=== PATIENT | male | born 1995 | race Two or more races ===

== ENCOUNTER 2021-09-30 02:32 | Emergency (ER) | payer OTHER ==
[~2021-09-30] VITALS: Ht 172.7 cm; Wt 86.2 kg
[2021-09-30 03:04] VITALS: BP 131/86
== END 2021-09-30 03:30 | disposition left against medical advice (07) ==
LOC: ER 02:32 → EDBD 02:32 → ER 03:30
DX: M54.2 Cervicalgia (principal); M54.9 Dorsalgia, unspecified; Z53.21 Procedure and treatment not carried out due to patient leaving prior to being seen by health care provider; V49.69XA Unspecified car occupant injured in collision with other motor vehicles in traffic accident, initial encounter; Y93.89 Activity, other specified; Y92.89 Other specified places as the place of occurrence of the external cause; Y99.8 Other external cause status